=== PATIENT | female | born 1995 | race Caucasian/White ===

== ENCOUNTER → 2023-10-14 | Outpatient (CLI) | payer OTHER ==
[~2023-10-14] MED LIST: MOTRIN400 MG PO; PRENATAL1 TA1 PO
[2023-10-14 08:28] LABS: BASO % 0.4 % (0.0-1.0); EOS # 0.1 10*3/uL (0.0-0.4); EOS % 1.8 % (1.0-4.0); HEMATOCRIT 40.7 % (37.0-47.0); LYMPH # 1.9 10*3/uL (1.3-4.4); LYMPH % 35.3 % (27.0-41.0); MEAN CELL VOLUME 91.5 fl (81.0-99.0); MEAN CORPUSCULAR HGB 30.8 pg (27.0-31.0); MEAN CORPUSCULAR HGB CONC 33.7 g/dl (33.0-37.0); MEAN PLATELET VOLUME 10.2 fl (9.6-12.3); MONO # 0.5 10*3/uL (0.1-1.0); MONO % 9.7 % (3.0-9.0); NEUT # 2.9 10*3/uL (2.3-7.9); NEUT % 52.6 % (47.0-73.0); PLATELET COUNT AUTOMATED 219 10*3/uL (130-400); RED BLOOD COUNT 4.45 10*6/uL (4.10-5.10); RED CELL DISTRI WIDTH 11.5 % (0-14.5); WHITE BLOOD COUNT 5.5 10*3/uL (4.8-10.8)
[2023-10-14 09:09] LABS: ALKALINE PHOSPHATASE 58 U/L (46-116); BUN 8 mg/dl (9-23); CHLORIDE 102 mmol/L (98-107); CHOLESTEROL 140 mg/dL (<200); LDL CHOLESTEROL 79 mg/dL (9-159); POTASSIUM 3.6 mmol/L (3.4-5.1); SGPT/ALT 8 U/L (5-49); TOTAL PROTEIN 7.6 gm/dL (6.0-8.0); TRIGLYCERIDES 67 mg/dl (<150)
[2023-10-14 09:14] LABS: VITAMIN D, 25-HYDROXY 28.4 ng/mL (30-100)
== END ==
LOC: LAB 08:16
PROVIDERS: ATTEND Nurse Practitioner Family
DX: G43.009 Migraine without aura, not intractable, without status migrainosus (principal); F41.9 Anxiety disorder, unspecified; F43.10 Post-traumatic stress disorder, unspecified

== ENCOUNTER 2023-10-19 21:28 | Emergency (ER) | payer OTHER ==
[2023-10-19] MEDS ORDERED: Ondansetron Hydrochloride 4 MG/2 ML VIAL IV ONE (22:00)
[2023-10-19] MEDS ORDERED: SODIUM CHLORIDE 0.9% 1,000 ML IV ONE (22:00)
[2023-10-19] MEDS ORDERED: diphenhydrAMINE hydrochloride 50 MG/ML VIAL IV ONE (22:00)
[2023-10-19] MEDS ORDERED: Ketorolac Tromethamine 30 MG/ML VIAL IV ONE (22:00)
== END 2023-10-19 23:39 | disposition home or self-care (01) ==
LOC: ED 21:28
DX: G43.909 Migraine, unspecified, not intractable, without status migrainosus (principal); R11.2 Nausea with vomiting, unspecified

== ENCOUNTER 2023-10-30 23:16 | Inpatient (IN) | payer OTHER ==
[~2023-10-30] VITALS: Ht 157.4 cm; Wt 61.2 kg
[2023-10-30] MEDS ORDERED: KEFLEX 500 MG E2 CAP PO (23:23)
[2023-10-30] MEDS ORDERED: SEPTDS PO (23:24)
[2023-10-30] MEDS ORDERED: PROZAC10 MG PO (23:25)
[2023-10-30] MEDS ORDERED: ATARAX,VISTARIL10 MG PO (23:26)
[2023-10-30 23:32] VITALS: BP 123/73
[2023-10-30] MEDS ORDERED: SODIUM CHLORIDE 0.9% 1,000 ML IV ONE (23:35)
[2023-10-30 23:57] LABS: BASO % 0.4 % (0.0-1.0); EOS # 0.1 10*3/uL (0.0-0.4); EOS % 1.4 % (1.0-4.0); HEMATOCRIT 35.7 % (37.0-47.0); LYMPH # 2.1 10*3/uL (1.3-4.4); LYMPH % 29.5 % (27.0-41.0); MEAN CELL VOLUME 93.7 fl (81.0-99.0); MEAN CORPUSCULAR HGB CONC 33.1 g/dl (33.0-37.0); MEAN PLATELET VOLUME 10.2 fl (9.6-12.3); MONO # 0.6 10*3/uL (0.1-1.0); MONO % 9.2 % (3.0-9.0); NEUT # 4.1 10*3/uL (2.3-7.9); NEUT % 59.2 % (47.0-73.0); PLATELET COUNT AUTOMATED 209 10*3/uL (130-400); RED BLOOD COUNT 3.81 10*6/uL (4.10-5.10); RED CELL DISTRI WIDTH 11.7 % (0-14.5); WHITE BLOOD COUNT 6.9 10*3/uL (4.8-10.8)
[2023-10-31 00:28] LABS: ALKALINE PHOSPHATASE 60 U/L (46-116); BUN 11 mg/dl (9-23); CHLORIDE 105 mmol/L (98-107); POTASSIUM 3.4 mmol/L (3.4-5.1); SGPT/ALT 10 U/L (5-49); TOTAL PROTEIN 7.1 gm/dL (6.0-8.0)
[2023-10-31] MEDS ORDERED: Piperacillin Sodium/Tazobact 50 ML IV ONE (00:40)
[2023-10-31] MEDS ORDERED: Vancomycin Hydrochloride 250 ML IV ONE (00:40)
[2023-10-31] MEDS ORDERED: ACETAMINOPHEN 325 MG TAB PO PRN (01:30)
[2023-10-31] MEDS ORDERED: Ondansetron Hydrochloride 4 MG/2 ML VIAL IV PRN (01:30)
[2023-10-31] MEDS ORDERED: Piperacillin Sodium/Tazobact 50 ML IV SCH ×2 (06:00→08:00)
[2023-10-31 06:09] LABS: BASO % 0.5 % (0.0-1.0); EOS # 0.2 10*3/uL (0.0-0.4); EOS % 2.5 % (1.0-4.0); HEMATOCRIT 35.4 % (37.0-47.0); LYMPH # 2.3 10*3/uL (1.3-4.4); LYMPH % 35.2 % (27.0-41.0); MEAN CELL VOLUME 94.1 fl (81.0-99.0); MEAN CORPUSCULAR HGB 31.1 pg (27.0-31.0); MEAN CORPUSCULAR HGB CONC 33.1 g/dl (33.0-37.0); MEAN PLATELET VOLUME 10.6 fl (9.6-12.3); MONO # 0.5 10*3/uL (0.1-1.0); MONO % 8.3 % (3.0-9.0); NEUT # 3.5 10*3/uL (2.3-7.9); NEUT % 53.3 % (47.0-73.0); PLATELET COUNT AUTOMATED 193 10*3/uL (130-400); RED BLOOD COUNT 3.76 10*6/uL (4.10-5.10); RED CELL DISTRI WIDTH 11.8 % (0-14.5); WHITE BLOOD COUNT 6.5 10*3/uL (4.8-10.8)
[2023-10-31 06:32] VITALS: BP 103/62
[2023-10-31 06:53] LABS: ALKALINE PHOSPHATASE 53 U/L (46-116); BUN 7 mg/dl (9-23); CHLORIDE 109 mmol/L (98-107); POTASSIUM 3.9 mmol/L (3.4-5.1); SGPT/ALT 11 U/L (5-49); TOTAL PROTEIN 6.2 gm/dL (6.0-8.0)
[2023-10-31 09:01] VITALS: BP 103/66
[2023-10-31] MEDS ORDERED: Enoxaparin Sodium 40 MG/0.4 ML SYR SC SCH (10:00)
[2023-10-31] MEDS ORDERED: BUPIVACAINE 0.5% 50 ML VIAL ONE (10:14)
[2023-10-31] MEDS ORDERED: LIDOCAINE HCL/EPINEPHRINE 50 ML VIAL ONE (10:14)
[2023-10-31 12:00] VITALS: BP 113/69
[2023-10-31] MEDS ORDERED: VIBRAMYCIN HYC100 MG PO (12:44)
[2023-10-31] MEDS ORDERED: VANCOMYCIN/WATER FOR INJ (PEG) 150 ML IV SCH (14:00)
== END 2023-10-31 14:38 | disposition home or self-care (01) | DRG 603 ==
LOC: ED 23:16 → EDHOLD 10-31 01:16
PROVIDERS: Internal Medicine; Student in an Organized Health Care Education/Training Program; ADMIT Internal Medicine; ATTEND Internal Medicine
DX: L03.116 Cellulitis of left lower limb (principal); F41.9 Anxiety disorder, unspecified; G43.919 Migraine, unspecified, intractable, without status migrainosus; D64.9 Anemia, unspecified; I34.1 Nonrheumatic mitral (valve) prolapse; L02.416 Cutaneous abscess of left lower limb; Z83.3 Family history of diabetes mellitus; Z82.49 Family history of ischemic heart disease and other diseases of the circulatory system

== ENCOUNTER → 2023-11-06 | Outpatient (CLI) | payer OTHER ==
[~2023-11-06] MED LIST changes: +ATARAX,VISTARIL10 MG PO; +KEFLEX 500 MG E2 CAP PO; +PROZAC10 MG PO; +SEPTDS PO; +VIBRAMYCIN HYC100 MG PO
== END | disposition home or self-care (01) ==
LOC: CARD 08:30
PROVIDERS: ATTEND Nurse Practitioner Family
DX: I37.1 Nonrheumatic pulmonary valve insufficiency (principal)

== ENCOUNTER 2023-12-11 18:26 | Emergency (ER) | payer OTHER ==
[~2023-12-11] VITALS: Ht 157.4 cm; Wt 61.2 kg
[2023-12-11] MEDS ORDERED: PROZAC20 MG PO (18:36)
[2023-12-11 19:24] LABS: BUN 11 mg/dl (9-23); CHLORIDE 103 mmol/L (98-107); POTASSIUM 3.7 mmol/L (3.4-5.1)
[2023-12-11 20:10] LABS: URINE AMPHETAMINES Negative (1000ng/ml); URINE BARBITURATES Negative (200ng/ml); URINE BENZODIAZEPINES Negative (200ng/ml); URINE CANNABINOIDS (THC) Negative (50ng/ml); URINE COCAINE Negative (300ng/ml); URINE METHADONE Negative (300ng/ml); URINE OPIATES Negative (300ng/ml); URINE PHENCYCLIDINE Negative (25ng/ml)
== END 2023-12-11 21:55 | disposition home or self-care (01) ==
LOC: ED 18:26
PROVIDERS: Emergency Medicine
DX: Z57.5 Occupational exposure to toxic agents in other industries (principal); R00.0 Tachycardia, unspecified

== ENCOUNTER → 2024-04-15 | Outpatient (CLI) | payer OTHER ==
[~2024-04-15] MED LIST changes: +PROZAC20 MG PO
== END | disposition home or self-care (01) ==
LOC: RAD 13:55
PROVIDERS: ATTEND Nurse Practitioner Family
DX: R31.1 Benign essential microscopic hematuria (principal); R10.9 Unspecified abdominal pain; R11.0 Nausea

== ENCOUNTER → 2024-04-20 | Outpatient (CLI) | payer OTHER | END | disposition home or self-care (01) | LOC: CT 16:02 | PROVIDERS: ATTEND Nurse Practitioner Family | DX: N20.0 Calculus of kidney (principal); R31.9 Hematuria, unspecified ==

== ENCOUNTER 2024-05-14 20:07 | Emergency (ER) | payer OTHER ==
[~2024-05-14] VITALS: Ht 157.4 cm; Wt 59.0 kg
[2024-05-14] MEDS ORDERED: BENZONATATE 100 MG CAP PO ONE (21:15)
[2024-05-14] MEDS ORDERED: Dextromethorphan Hydrobromid 1 TAB TAB PO ONE (21:15)
[2024-05-14] MEDS ORDERED: BENZONATATE100 M1 PO (21:17)
[2024-05-14] MEDS ORDERED: AMOX-CLAV 875-1 EACH PO (21:17)
[2024-05-14] MEDS ORDERED: EXPECTORANT200 MG PO ×2 (21:17→21:22)
== END 2024-05-14 21:46 | disposition home or self-care (01) ==
LOC: ED 20:07
DX: J40 Bronchitis, not specified as acute or chronic (principal); G43.909 Migraine, unspecified, not intractable, without status migrainosus; F17.210 Nicotine dependence, cigarettes, uncomplicated

== ENCOUNTER 2025-01-31 19:45 | Emergency (ER) | payer OTHER ==
[~2025-01-31 19:45] MED LIST changes: +AMOX-CLAV 875-1 EACH PO; +BENZONATATE100 M1 PO; +EXPECTORANT200 MG PO
[2025-01-31] MEDS ORDERED: MELOXICAM15 MG PO (21:19)
== END 2025-01-31 21:30 | disposition home or self-care (01) ==
LOC: ED 19:45
DX: S63.502A Unspecified sprain of left wrist, initial encounter (principal); Z79.899 Other long term (current) drug therapy; X58.XXXA Exposure to other specified factors, initial encounter; Y93.72 Activity, wrestling; Y92.098 Other place in other non-institutional residence as the place of occurrence of the external cause; Y99.8 Other external cause status